=== PATIENT | female | born 1960 | race Caucasian/White ===

== ENCOUNTER → 2016-10-16 | Outpatient (CLI) | payer OTHER | END | disposition home or self-care (01) | LOC: LABWHC1 14:00 | PROVIDERS: ATTEND Internal Medicine | DX: E28.39 Other primary ovarian failure (principal); E34.9 Endocrine disorder, unspecified; N95.8 Other specified menopausal and perimenopausal disorders | CPT/HCPCS: 36415; 82670; 83001; 84402; 84403 ==

== ENCOUNTER 2017-02-27 12:36 | Day surgery (SDC) | payer OTHER ==
[2017-02-21 10:37] VITALS: BMI 22.1
--- NOTE | 2017-02-27 11:59 | P.GSHP ---
History of Present Illness H&P Date: 02/27/17 56 yrs old female presents with rectal fullness, discomfort and bright red bleeding. last colonoscopy on 2013 -single tubular adenoma. Recommend colonoscopy in 5 yrs. No weight loss. No change in bowel habits. No family history of colon cancer. Worsening pain and discomfort with intermittent rectal bleeding ROS Additionally reports: Constitutional: No fever, chills or rigors. No weight loss or loss of appetite. HEENT: No difficulty with hearing, vision and swallowing. Lymphatic: No axillary, inguinal and cervical swellings. Endocrine: No thyroid disorders. Denies history of diabetes. Respiratory: No chest pain, shortness of breath, and cough. No hemoptysis. Cardiovascular: No palpitations, irregular HR Gastrointestinal: Denies heartburn. No change in bowel habits. No nausea or vomiting. Genitourinary: No increase in urinary frequency or urgency. No hematuria. Musculoskeletal: No back pain, joint stiffness or pain. Neurologic: No history of seizure disorder and headaches. Psychiatric: Denies depression or anxiety . No suicidal ideation. Hematologic: Denies any abnormal mucosal bleeding or easy bruising. Physical Exam Patient is a 56-year-old female. General: The patient is alert and oriented to time, place and person. The patient is cooperative with the exam. The patient is not in any distress. HEENT: No icterus. No pallor. No thyroid enlargement. Chest: Bilateral breath sounds present. CVS: S1 and S2 heard and no murmurs. Abdomen: Soft, nontender. Nondistended. No peritoneal signs. No evidence of hernias. Musculoskeletal: Strength of upper and lower extremities 5/5. Neurological: Cranial nerves 2-12 intact. No focal neurological deficits. Integumentary: No skin rash or ulcers. Assessment / Plan 1. Colonoscopy in OR and open hemorrhoidectomy with exparel 2. Informed consent obtained from the patient after explaining the risks, benefits and potential complications of colonoscopy including bleeding and perforation and hemorrhoidectomy 3. Patient demonstrated understanding of the procedure and agreed to undergo colonoscopy with possible biopsy/polypectomy and open hemorrhoidectomy 4. Script for bowel prep 5. Preop Abx - Ancef 2gm IVPB and Flagyl 500 mg IVPB 1. Painless rectal bleeding K62.5: Hemorrhage of anus and rectum 2. Rectal prolapse K62.3: Rectal prolapse 3. Bleeding internal hemorrhoids K64.8: Other hemorrhoids Past Medical History Past Medical History: No Reported History History of Any Multi-Drug Resistant Organisms: None Reported Past Surgical History: Hysterectomy, Tubal Ligation Past Anesthesia/Blood Transfusion Reactions: No Reported Reaction Smoking Status: Current every day smoker - Past Family History Mother Family Medical History: No Reported History Medications and Allergies Home Medications Medication Instructions Recorded Confirmed Type Calcium Carbonate [Calcium] 1,200 mg PO DAILY 02/21/17 02/21/17 History Multivit with Calcium,Iron,Min 1 each PO DAILY 02/21/17 02/21/17 History [Women's Multivitamin] Neola-3 Fatty Acids [[place]ola-3] 2,000 mg PO DAILY 02/21/17 02/21/17 History Saw [place] 10,000 mg PO DAILY 02/21/17 02/21/17 History Allergies Allergy/AdvReac Type Severity Reaction Status Date / Time No Known Allergies Allergy Verified 02/21/17 10:26
[~2017-02-27 12:36] MED LIST: DEXAMETHASONE SOD PHOSPHATE 10 MG/ML 1 ML VIAL IV ONE; HEPARIN SODIUM,PORCINE 5,000 UNIT/ML 1 ML VIAL SQ ONE; HYDROmorphone 1 MG/ML 1 ML SYRINGE IVP PRN; LACTATED RINGERS 1,000 ML IV SCH; LIDOCAINE 1% 20 ML VIAL (10MG/ML) FOR IV START INTRADERMA PRN; Pre Op ABX Message 1 EACH MISC MISCELLANE ONE
[2017-02-27] MEDS ORDERED: LIDOCAINE 1% 20 ML VIAL (10MG/ML) FOR IV START INTRADERMA ONE (13:01)
[2017-02-27] MEDS ORDERED: BUPIVACAINE LIPOSOME/PF 1.3% 20 ML, SODIUM CHLORIDE 0.9% 10 ML MISCELLANE STA ×2 (13:17)
[2017-02-27] MEDS ORDERED: PROPOFOL 10 MG/ML 20 ML VIAL IV ONE (13:31)
[2017-02-27] MEDS ORDERED: fentaNYL (PF) 50 MCG/ML 2 ML AMP ONE (13:31)
[2017-02-27] MEDS ORDERED: LIDOCAINE 1% INJ 10MG/ML (20 ML MDV) ONE (13:31)
[2017-02-27] MEDS ORDERED: SUCCINYLCHOLINE CHLORIDE 100 MG/5 ML SYR IV ONE (13:31)
[2017-02-27] MEDS ORDERED: MIDAZOLAM 2 MG/2 ML VIAL ONE (13:31)
[2017-02-27 14:19] VITALS: TEMP 97
[2017-02-27 14:38] VITALS: PULSE 71
[2017-02-27 14:51] VITALS: BP 117/69; RESP 16
--- NOTE | 2017-02-27 15:52 | P.OP ---
Date of Procedure: 02/27/17 Preoperative Diagnosis: Rectal bleeding, rectal prolapse Postoperative Diagnosis: Same Procedure(s) Performed: Colonoscopy Implants: NA Anesthesia: SALINA Surgeon: Angela Bonilla Pathology: none sent Condition: stable Disposition: PACU Indications for Procedure: 57 years old female presents with intermittent episodes of diarrhea, rectal bleeding. She had patulous anal opening with rectal mucosal prolapse. Bedside anoscopy exam was limited and hence she was brought to the OR for colonoscopy and complete endoscopic examination and possible hemorrhoidectomy Operative Findings: Rectal mucosal prolapse Small grade 1 internal hemorrhoids Description of Procedure: The patient was brought to the endoscopy suite and placed in lateral decubitus position. IV sedation was given as per anesthesia team. Patient was on continuous vitals and pulse oximetry monitoring throughout the procedure. A timeout was performed to verify correct patient and correct procedure. Perianal examination did not show any external hemorrhoids. Digital rectal examination was performed. No masses or gross blood. A well-lubricated Olympus colonoscope was passed per rectally and was gradually advanced beyond the sigmoid colon, splenic flexure, transverse colon, hepatic flexure and cecum. The ileocecal valve was visualized as well as the appendiceal orifice . The colonoscope was gradually withdrawn inspecting all the mucosal surfaces. Bowel prep was good. No polyps, masses, AV malformations noted. Sigmoid diverticulosis noted without any evidence of acute diverticulitis. The scope was gradually withdrawn and retroflexed in the rectum . Grade 1 internal hemorrhoids seen. Total withdrawal time was greater than 6 minutes . Patient tolerated the procedure well and was taken to post anesthesia care unit in stable condition. Recommend repeat colonoscopy in 10 years .
== END 2017-02-27 15:30 | disposition home or self-care (01) ==
LOC: OR 12:36
PROVIDERS: ATTEND Surgery
DX: K62.3 Rectal prolapse (principal); K64.0 First degree hemorrhoids; K57.30 Diverticulosis of large intestine without perforation or abscess without bleeding; F17.200 Nicotine dependence, unspecified, uncomplicated
CPT/HCPCS: 45378; J2250; J1644; J1100; J2001; J3010; J0330; J2704

== ENCOUNTER → 2017-03-01 | Outpatient (CLI) | payer OTHER ==
[2017-03-01 16:42] LABS: Follicle Stimulating Hormone 16.4 mIU/mL
== END | disposition home or self-care (01) ==
LOC: LABWHC1 15:28
PROVIDERS: ATTEND Internal Medicine
DX: E28.39 Other primary ovarian failure (principal); E34.9 Endocrine disorder, unspecified; N95.8 Other specified menopausal and perimenopausal disorders
CPT/HCPCS: 36415; 82670; 83001; 84402; 84403

== ENCOUNTER → 2017-08-01 | Outpatient (CLI) | payer BC ==
--- NOTE | 2017-08-06 07:00 | MM ---
Reason for exam: screening (asymptomatic). Last mammogram was performed 1 year and 1 month ago. History: Patient is postmenopausal. Taking estrogen for 4 years. Took unspecified hormones for 4 years. Physical Findings: A clinical breast exam by your physician is recommended on an annual basis and results should be correlated with mammographic findings. MG Screening Mammo w CAD Bilateral CC and MLO view(s) were taken. Prior study comparison: June 26, 2016, bilateral MG 3d screening mammo w/cad. June 07, 2015, left breast MG 3d work up w/cad LT. May 26, 2015, bilateral MG screening mammo w CAD. January 22, 2012, bilateral digital screening mammo w/CAD. The breast tissue is extremely dense which could obscure a lesion on mammography. No significant changes when compared with prior studies. ASSESSMENT: Benign, BI-RAD 2 RECOMMENDATION: Routine screening mammogram of both breasts in 1 year.
== END | disposition home or self-care (01) ==
LOC: RADMAMWWP 13:32
PROVIDERS: ATTEND Internal Medicine
DX: Z12.31 Encounter for screening mammogram for malignant neoplasm of breast (principal)

== ENCOUNTER → 2017-11-21 | Outpatient (CLI) | payer BC | END | disposition home or self-care (01) | LOC: LABWHC1 14:43 | PROVIDERS: ATTEND Internal Medicine | DX: E28.39 Other primary ovarian failure (principal); E34.9 Endocrine disorder, unspecified; N95.8 Other specified menopausal and perimenopausal disorders | CPT/HCPCS: 36415; 80327; 82670; 83001; 84402; 84403 ==

== ENCOUNTER → 2017-12-17 | Outpatient (CLI) | payer BC ==
--- NOTE | 2017-12-17 10:17 | US ---
EXAMINATION TYPE: US abdomen complete DATE OF EXAM: 12/17/2017 COMPARISON: NONE CLINICAL HISTORY: 57-year-old female R10.31 Right lower quadrant pain; patient stated has epigastric pain after meals radiating to chest and relieved with Prilosec; uterus removed TECHNIQUE: Multiple sonographic images of the abdomen are obtained. FINDINGS: EXAM MEASUREMENTS: Liver Length: 16.0 cm Gallbladder Wall: 0.2 cm CBD: 5.6 mm Spleen: 7.9 cm Right Kidney: 8.2 x 5.3 x 4.4 cm Left Kidney: 11.0 x 5.6 x 4.7 cm Pancreas: wnl Liver: wnl Gallbladder: wnl Evidence for sonographic Abdi's sign: no CBD: Upper limits of normal in size. Spleen: wnl Right Kidney: There is a lobulated and somewhat distorted appearance. A few echogenic foci are scatt ered in the upper pole. The renal sinus area and the normal architecture is not well characterized. Left Kidney: No hydronephrosis. Upper IVC: wnl Abd Aorta: wnl IMPRESSION: 1. Lobulated and distorted appearance to the right kidney. This may relate to congenital malrotation. Recommend CT without and with contrast to exclude any underlying renal masses and to better characte rize the collecting system. 2. Punctate nonobstructive calculi upper pole right kidney.
== END | disposition home or self-care (01) ==
LOC: RADUSWWP 07:36
PROVIDERS: ATTEND Internal Medicine
DX: N20.0 Calculus of kidney (principal); R93.421 Abnormal radiologic findings on diagnostic imaging of right kidney
CPT/HCPCS: 76700

== ENCOUNTER → 2017-12-31 | Outpatient (CLI) | payer BC ==
--- NOTE | 2017-12-31 09:15 | CT ---
EXAMINATION TYPE: CT abdomen pelvis wo/w con DATE OF EXAM: 12/31/2017 COMPARISON: Correlation ultrasound 12/17/2017 HISTORY: 57-year-old female abnormal renal ultrasound. TECHNIQUE: Contiguous axial scanning of the abdomen and pelvis before and after administration of 100 ml Isovue 300 IV contrast. Delayed images through the kidneys and coronal/sagittal reconstructions performed. CT DLP: 1551 mGycm Automated exposure control for dose reduction was used. FINDINGS: Heart is normal size without pericardial effusion. Tiny hiatal hernia. Lung bases clear without pleur al effusion. Liver upper limits of normal in size at 17.0 cm. No hepatic extremity ptosis by CT. A couple tiny sub centimeter hypodensities in the right hepatic dome are too small for accurate CT characterization but likely represent cysts. No biliary ductal dilatation. Portal venous system is patent. Gallbladder, adrenal glands, left kidney with extrarenal pelvis, and spleen are within normal limits. Pancreas shows some punctate calcifications posterior pancreatic head region that could represent seq uela of prior pancreatitis. Imaging confirms a congenital malrotation of the right kidney accounting for the abnormal appearance on ultrasound. Kidney is rotated by nearly 180 degrees counterclockwise. No nephrolithiasis or hydron ephrosis. There is symmetric uptake and excretion of contrast from the kidneys. No suspicious renal m ass. No dilated small bowel, free fluid, or free air. Normal appendix. No mesenteric or retroperitoneal lymphadenopathy. [id number] stool without pericolonic inflammatory change. Bladder is urine distended. Uterus surgically absent. Both ovaries are visualized. No abnormal fluid collection in the pelvis or pelvic lymphadenopathy. Bones: No osseous destructive process. Mild degenerative disc disease L5-S1 with small left paracent ral disc herniation. 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 No hydronephrosis, nephrolithiasis, or suspicious renal mass.
== END | disposition home or self-care (01) ==
LOC: RADCTMAIN 06:57
PROVIDERS: ATTEND Internal Medicine
DX: Q63.2 Ectopic kidney (principal)
CPT/HCPCS: 74178; Q9967

== ENCOUNTER → 2018-04-08 | Outpatient (CLI) | payer BC | END | disposition home or self-care (01) | LOC: LABWHC1 14:45 | PROVIDERS: ATTEND Internal Medicine | DX: E28.39 Other primary ovarian failure (principal); E34.9 Endocrine disorder, unspecified; N95.8 Other specified menopausal and perimenopausal disorders | CPT/HCPCS: 36415; 80327; 82670; 83001; 84402; 84403 ==

== ENCOUNTER → 2018-09-02 | Outpatient (CLI) | payer BC ==
[2018-09-02 17:44] LABS: LDL Cholesterol,Calculated 91.8 mg/dL (0.0-131.0); Sex Horm Bind Glob 69.5 nmol/L (23.15-159.07); VLDL Calculation 36.2 mg/dL (5.00-40.00)
== END ==
LOC: LABWHC1 10:40
PROVIDERS: ATTEND Internal Medicine
DX: E28.39 Other primary ovarian failure (principal); N95.8 Other specified menopausal and perimenopausal disorders; E34.9 Endocrine disorder, unspecified
CPT/HCPCS: 36415; 80061; 80327; 82670; 83001; 84270; 84402; 84403

== ENCOUNTER → 2018-09-02 | Outpatient (CLI) | payer BC ==
--- NOTE | 2018-09-08 14:39 | MM ---
Reason for exam: screening (asymptomatic). Last mammogram was performed 1 year and 1 month ago. History: Patient is postmenopausal. Taking estrogen for 5 years 1 month. Took unspecified hormones for 5 years 1 month. Physical Findings: A clinical breast exam by your physician is recommended on an annual basis and results should be correlated with mammographic findings. MG 3D Screening Mammo W/Cad Bilateral CC and MLO view(s) were taken. Prior study comparison: August 01, 2017, bilateral MG screening mammo w CAD. June 26, 2016, bilateral MG 3d screening mammo w/cad. The breast tissue is heterogeneously dense. This may lower the sensitivity of mammography. No significant changes when compared with prior studies. ASSESSMENT: Negative, BI-RAD 1 RECOMMENDATION: Routine screening mammogram of both breasts in 1 year.
== END | disposition home or self-care (01) ==
LOC: RADMAMWWP 10:14
PROVIDERS: ATTEND Internal Medicine
DX: Z12.31 Encounter for screening mammogram for malignant neoplasm of breast (principal)
CPT/HCPCS: 77063; 77067

== ENCOUNTER → 2019-07-07 | Outpatient (CLI) | payer BC ==
[2019-07-08 00:34] LABS: Estradiol 98.1 pg/mL; Follicle Stimulating Hormone 19.2 mIU/mL
== END | disposition home or self-care (01) ==
LOC: LABWHC1 15:48
PROVIDERS: ATTEND Internal Medicine
DX: E28.39 Other primary ovarian failure (principal); N95.8 Other specified menopausal and perimenopausal disorders; E34.9 Endocrine disorder, unspecified
CPT/HCPCS: 36415; 82670; 83001; 84403

== ENCOUNTER → 2019-09-15 | Outpatient (CLI) | payer BC ==
--- NOTE | 2019-09-16 11:20 | MM ---
Reason for exam: screening (asymptomatic). Last mammogram was performed 1 year ago. History: Patient is postmenopausal. Taking estrogen for 5 years 1 month. Took unspecified hormones for 5 years 1 month. Physical Findings: A clinical breast exam by your physician is recommended on an annual basis and results should be correlated with mammographic findings. MG 3D Screening Mammo W/Cad Bilateral CC and MLO view(s) were taken. XCCL view(s) were taken of the left breast. Prior study comparison: September 02, 2018, bilateral MG 3d screening mammo w/cad. August 01, 2017, bilateral MG screening mammo w CAD. The breast tissue is heterogeneously dense. This may lower the sensitivity of mammography. Stable benign calcifications. There is no discrete abnormality. No significant changes when compared with prior studies. ASSESSMENT: Benign, BI-RAD 2 RECOMMENDATION: Routine screening mammogram of both breasts in 1 year.
== END | disposition home or self-care (01) ==
LOC: RADMAMWWP 13:09
PROVIDERS: ATTEND Internal Medicine
DX: Z12.31 Encounter for screening mammogram for malignant neoplasm of breast (principal)
CPT/HCPCS: 77063; 77067

== ENCOUNTER → 2020-12-27 | Outpatient (CLI) | payer BC ==
--- NOTE | 2020-12-29 14:26 | MM ---
Reason for exam: screening (asymptomatic). Last mammogram was performed 1 year and 3 months ago. History: Patient is postmenopausal. Took estrogen for 5 years 1 month. Took unspecified hormones for 5 years 1 month. Physical Findings: A clinical breast exam by your physician is recommended on an annual basis and results should be correlated with mammographic findings. MG 3D Screening Mammo W/Cad Bilateral CC and MLO view(s) were taken. Prior study comparison: September 15, 2019, bilateral MG 3d screening mammo w/cad. September 02, 2018, bilateral MG 3d screening mammo w/cad. The breast tissue is heterogeneously dense. This may lower the sensitivity of mammography. Focal asymmetry upper outer left breast. This finding is changed when compared with previous exams. ASSESSMENT: Incomplete: need additional imaging evaluation, BI-RAD 0 RECOMMENDATION: Special view mammogram of the left breast. If lesion persists on supplemental views, image directed ultrasound is recommended. [facility] will attempt to contact patient to return for supplemental views and ultrasound if indicated.
== END | disposition home or self-care (01) ==
LOC: RADMAMWWP 12:32
PROVIDERS: ATTEND Internal Medicine
DX: Z12.31 Encounter for screening mammogram for malignant neoplasm of breast (principal); Z78.0 Asymptomatic menopausal state
CPT/HCPCS: 77063; 77067

== ENCOUNTER → 2021-01-05 | Outpatient (CLI) | payer BC ==
--- NOTE | 2021-01-05 11:48 | MM ---
Reason for exam: additional evaluation requested from abnormal screening. Last mammogram was performed less than 1 month ago. History: Patient is postmenopausal. Took estrogen for 10 years 1 month. Took unspecified hormones for 10 years 1 month. Physical Findings: Nurse did not find any significant physical abnormalities on exam. MG 3D Work Up W/Cad LT Spot compression CC, spot compression MLO, and LM view(s) were taken of the left breast. Prior study comparison: December 27, 2020, bilateral MG 3d screening mammo w/cad. September 15, 2019, bilateral MG 3d screening mammo w/cad. The breast tissue is extremely dense which could obscure a lesion on mammography. Left focal asymmetry upper outer quadrant posterior depth is benign asymmetry/overlap tissue. These results were verbally communicated with the patient and result sheet given to the patient on 01/05/21. ASSESSMENT: Benign, BI-RAD 2 RECOMMENDATION: Return to routine screening mammogram schedule for both breasts.
== END | disposition home or self-care (01) ==
LOC: RADMAMWWP 10:23
PROVIDERS: ATTEND Internal Medicine
DX: N64.89 Other specified disorders of breast (principal); Z78.0 Asymptomatic menopausal state
CPT/HCPCS: 77061; 77065

== ENCOUNTER → 2022-01-16 | Outpatient (CLI) | payer BC ==
--- NOTE | 2022-01-18 17:35 | MM ---
Reason for Exam: Screening (asymptomatic). Last mammogram was performed 1 year(s) and 1 month(s) ago. Patient History: Menarche at age 12. First Full-Term at age 31. Hysterectomy at age 48. Postmenopausal. Estrogen for 10 years, 1 month. Unspecified Hormone for 10 years, 1 month. Mother had breast cancer, right, age 78. Risk Values: Shea 5 year model risk: 3.0%. NCI Lifetime model risk: 15.5%. Prior Study Comparison: 09/15/2019 Bilateral Screening Mammogram, [facility]. 12/27/2020 Bilateral Screening Mammogram, [facility]. 01/05/2021 Left Diagnostic Mammogram, [facility]. Tissue Density: The breast tissue is extremely dense which could obscure a lesion on mammography. Findings: Analyzed By CAD. Benign spherical calcifications are present. There is a coarse calcification in the right breast. No suspicious groups of microcalcifications, spiculated or lobular masses, Architectural distortion or other secondary signs of malignancy are mammographically apparent. Overall Assessment: Benign, BI-RAD 2 Management: Screening Mammogram of both breasts in 1 year. A negative mammogram report should not preclude additional follow up of suspicious palpable abnormalities. Patient should continue monthly self breast exam. A clinical breast exam by your physician is recommended on an annual basis and results should be correlated with mammographic findings. Electronically signed and approved by: Jesse Caballero D.O. Radiologis
== END | disposition home or self-care (01) ==
LOC: RADMAMWWP 11:49
PROVIDERS: ATTEND Internal Medicine
DX: Z12.31 Encounter for screening mammogram for malignant neoplasm of breast (principal); Z80.3 Family history of malignant neoplasm of breast; Z78.0 Asymptomatic menopausal state
CPT/HCPCS: 77063; 77067

== ENCOUNTER → 2022-02-02 | Day surgery (SDC) | payer BC ==
[2022-01-31 15:42] VITALS: BMI 23.2
[~2022-02-02] MED LIST changes: -DEXAMETHASONE SOD PHOSPHATE 10 MG/ML 1 ML VIAL IV ONE; -HEPARIN SODIUM,PORCINE 5,000 UNIT/ML 1 ML VIAL SQ ONE; -HYDROmorphone 1 MG/ML 1 ML SYRINGE IVP PRN; +LIDOCAINE 1% (10MG/ML) FOR IV START INTRADERMA ONE; -LIDOCAINE 1% 20 ML VIAL (10MG/ML) FOR IV START INTRADERMA PRN; +LIDOCAINE 2% INJ 20 MG/ML (2 ML VIAL) ONE; +PROPOFOL 10 MG/ML 20 ML VIAL IV ONE; -Pre Op ABX Message 1 EACH MISC MISCELLANE ONE
[2022-02-02 08:05] VITALS: TEMP 97.5
--- NOTE | 2022-02-02 09:15 | P.PCN ---
Date of Procedure: 02/02/22 Procedure(s) Performed: BRIEF HISTORY: Patient is a 61-year-old pleasant white female scheduled for an elective colonoscopy as a part of screening for colon rectal neoplasia. PROCEDURE PERFORMED: Colonoscopy. PREOPERATIVE DIAGNOSIS: Screening for colon cancer. IV sedation per Anesthesia. PROCEDURE: After informed consent was obtained, the patient, was brought into the endoscopy unit. IV sedation was administered by Anesthesia under continuous monitoring. Digital rectal examination was normal. Initially the Olympus CF-160 flexible video colonoscope was then inserted in the rectum, gradually advanced into the cecum without any difficulty. Careful examination was performed as the scope was gradually being withdrawn. Ileocecal valve and the appendiceal orifice were visualized and appeared normal. Prep was excellent. Mucosa of the cecum, ascending colon, transverse colon, descending colon, sigmoid colon, and rectum appeared normal. Retroflexion was performed in the rectum and small internal hemorrhoids were seen. The patient tolerated the procedure well. IMPRESSION: Normal-appearing colon from rectum to cecum with no evidence of colorectal neoplasia . Small internal hemorrhoids RECOMMENDATIONS: Findings of this examination were discussed with the patient as well as a family. She was advised to have a repeat screening colonoscopy in 10 years..
[2022-02-02 09:22] VITALS: RESP 18
[2022-02-02 09:57] VITALS: BP 112/72; PULSE 71
== END ==
LOC: ORWHC2ENDO 07:34
PROVIDERS: ATTEND Internal Medicine Gastroenterology
DX: Z12.11 Encounter for screening for malignant neoplasm of colon (principal); K64.8 Other hemorrhoids; Z72.0 Tobacco use
CPT/HCPCS: J2704; J2001; G0121

== ENCOUNTER → 2022-06-19 | Outpatient (CLI) | payer BC ==
--- NOTE | 2022-06-19 13:23 | CTL ---
EXAMINATION TYPE: CT Low Dose Lung DATE OF EXAM: 06/19/2022 12:30 PM CLINICAL INDICATION:Female, 62 years old with history of Z87.891; Nicotine dependant , history of tob acco use. COMPARISON: None TECHNIQUE: Multiple axial non-contrast scans were obtained from approximately the lung apices through the upper abdomen. Coronal and sagittal reformatted images were obtained. Low dose technique was uti lized. CT DLP: 61 mGycm, Automated exposure control for dose reduction was used. CT Contrast: Contrast used: None Oral contrast used: None FINDINGS: ======== Lack of intravenous contrast and low dose technique limits the evaluation of the vascular and soft ti ssue structures. LUNGS: Mild centrilobular emphysema changes noted Nodules: RUL: None. RML: None. RLL: None. HAYLEE: None. LLL: None. AIRWAYS: Unremarkable. LOWER NECK: Grossly unremarkable. LYMPH NODES: No grossly enlarged lymph nodes in the thorax. MEDIASTINUM?AND NINA: Grossly unremarkable. HEART AND VASCULAR STRUCTURES: Grossly unremarkable. PLEURA & PERICARDIUM: Grossly unremarkable. CHEST WALL: Grossly unremarkable. UPPER ABDOMEN: Hepatic cyst. BONES: Total mild multilevel disc degeneration changes throughout the spine.7 IMPRESSION: 1. No clinically significant pulmonary nodules. 2. Mild emphysema. CT LUNG RAD AND CT CHEST RECOMMENDATION: Lung-Rad 1 Negative: Continue annual screening with LDCT in 12 months. S Modifier (other clinically significant findings): None Recommendation: Continue annual low dose lung cancer screening in 12 months. Lung-RADS Category: 2 Recommend smoking cessation (if current smoker), or continuation of smoking cessation (if prior smoke r). Annual screening for lung cancer with low-dose computed tomography is recommended in adults ages 55 to 77 years who have a 30 pack-year smoking history and currently smoke or have quit within the pa st 15 years. Screening should be discontinued once a person has not smoked for 15 years or develops a health problem that substantially limits life expectancy or the ability or willingness to have curat wyatt lung surgery.
== END | disposition home or self-care (01) ==
LOC: RADCTMAIN 12:07
PROVIDERS: ATTEND Internal Medicine
DX: Z12.2 Encounter for screening for malignant neoplasm of respiratory organs (principal); J43.9 Emphysema, unspecified; Z87.891 Personal history of nicotine dependence
CPT/HCPCS: 71271

== ENCOUNTER → 2022-09-13 | Outpatient (CLI) | payer BC ==
[2022-09-13 23:35] LABS: Estradiol 18.8 pg/mL; Follicle Stimulating Hormone 59.1 mIU/mL; Testosterone 17.4 ng/mL (7.00-45.62)
== END | disposition home or self-care (01) ==
LOC: LABWHC1 14:00
PROVIDERS: ATTEND Internal Medicine
DX: E28.39 Other primary ovarian failure (principal); E34.9 Endocrine disorder, unspecified; F52.0 Hypoactive sexual desire disorder; N95.1 Menopausal and female climacteric states
CPT/HCPCS: 36415; 82670; 83001; 84402; 84403

== ENCOUNTER → 2022-11-20 | Outpatient (CLI) | payer BC ==
[2022-11-20 20:11] LABS: Estradiol 62.3 pg/mL; Follicle Stimulating Hormone 36.8 mIU/mL
== END | disposition home or self-care (01) ==
LOC: LABWHC1 14:17
PROVIDERS: ATTEND Internal Medicine
DX: E28.39 Other primary ovarian failure (principal); E34.9 Endocrine disorder, unspecified; F52.0 Hypoactive sexual desire disorder; N95.8 Other specified menopausal and perimenopausal disorders
CPT/HCPCS: 36415; 82670; 83001; 84402; 84403

== ENCOUNTER → 2023-01-22 | Outpatient (CLI) | payer BC ==
--- NOTE | 2023-01-23 09:07 | MM ---
Reason for Exam: Screening (asymptomatic). Last screening mammogram was performed 12 month(s) ago. Patient History: Menarche at age 12. First Full-Term at age 31. Hysterectomy at age 48. Postmenopausal. Estrogen for 10 years, 1 month. Unspecified Hormone for 10 years, 1 month. Mother had breast cancer, right, age 78. Risk Values: Shae 5 year model risk: 3.1%. NCI Lifetime model risk: 15.2%. Prior Study Comparison: 12/27/2020 Bilateral Screening Mammogram, [facility]. 01/05/2021 Left Diagnostic Mammogram, [facility]. 01/16/2022 Bilateral MG 3D screening mammo w/cad, [facility]. Tissue Density: The breast tissue is heterogeneously dense. This may lower the sensitivity of mammography. Findings: Analyzed By CAD. There is no suspicious group of microcalcifications or new suspicious mass in either breast. Overall Assessment: Negative, BI-RAD 1 Management: Screening Mammogram of both breasts in 1 year. . Patient should continue monthly self-breast exams. A clinical breast exam by your physician is recommended on an annual basis. This exam should not preclude additional follow-up of suspicious palpable abnormalities. Note on Shae scores and lifetime risk: 1. A Shae score greater than 3% is considered moderate risk. If this is the case, consider specialist referral to assess eligibility for a risk reducing agent. 2. If overall lifetime risk for the development of breast cancer is 20% or higher, the patient may qualify for future screening with alternating mammogram and breast MRI. Electronically signed and approved by: Claude Preciado M.D. Radiologis
== END | disposition home or self-care (01) ==
LOC: RADMAMWWP 13:06
PROVIDERS: ATTEND Internal Medicine
DX: Z12.31 Encounter for screening mammogram for malignant neoplasm of breast (principal); Z78.0 Asymptomatic menopausal state; Z80.3 Family history of malignant neoplasm of breast
CPT/HCPCS: 77063; 77067

== ENCOUNTER → 2023-02-28 | Outpatient (CLI) | payer BC ==
[2023-02-28 16:24] LABS: Estradiol 42.2 pg/mL; Testosterone 69.5 ng/dL (7.00-45.62)
== END | disposition home or self-care (01) ==
LOC: LABWHC1 12:06
PROVIDERS: ATTEND Internal Medicine
DX: E28.39 Other primary ovarian failure (principal); E34.9 Endocrine disorder, unspecified; F52.0 Hypoactive sexual desire disorder; N95.8 Other specified menopausal and perimenopausal disorders
CPT/HCPCS: 36415; 82670; 83001; 84402; 84403

== ENCOUNTER → 2023-07-18 | Outpatient (CLI) | payer BC ==
[2023-07-19 02:14] LABS: Estradiol 47.6 pg/mL; Testosterone 87.8 ng/dL (7.00-45.62)
[2023-07-19 02:24] LABS: Follicle Stimulating Hormone 51.6 mIU/mL
== END | disposition home or self-care (01) ==
LOC: LABWHC1 12:14
PROVIDERS: ATTEND Internal Medicine
DX: E28.39 Other primary ovarian failure (principal); E34.9 Endocrine disorder, unspecified; F52.0 Hypoactive sexual desire disorder; N95.8 Other specified menopausal and perimenopausal disorders
CPT/HCPCS: 36415; 82670; 83001; 84402; 84403

== ENCOUNTER → 2024-01-02 | Outpatient (CLI) | payer BC ==
[2024-01-02 18:52] LABS: Estradiol 66.2 pg/mL; Testosterone 67.2 ng/dL (7.00-45.62)
[2024-01-02 19:17] LABS: Follicle Stimulating Hormone 49.4 mIU/mL
--- NOTE | 2024-01-06 13:29 | MM ---
Reason for Exam: Screening (asymptomatic). Last screening mammogram was performed 11 month(s) ago. Patient History: Menarche at age 12. First Full-Term at age 31. Hysterectomy at age 48. Postmenopausal. Estrogen for 10 years, 1 month. Unspecified Hormone for 10 years, 1 month. Mother had breast cancer, right, age 78. Risk Values: Shae 5 year model risk: 3.2%. NCI Lifetime model risk: 14.8%. Prior Study Comparison: 01/05/2021 Left Diagnostic Mammogram, [facility]. 01/16/2022 Bilateral MG 3D screening mammo w/cad, [facility]. 01/22/2023 Bilateral MG 3D screening mammo w/cad, [facility]. Tissue Density: The breasts are extremely dense, which lowers the sensitivity of mammography. Findings: Analyzed By CAD. The pattern is symmetrical. Pattern is symmetrical. Benign spherical calcifications are present bilaterally. No suspicious groups of microcalcifications, spiculated or lobular masses, architectural distortion or other secondary signs of malignancy are mammographically apparent. Overall Assessment: Benign, BI-RAD 2 Management: Screening Mammogram of both breasts in 1 year. A negative mammogram report should not preclude additional follow up of suspicious palpable abnormalities. Patient should continue monthly self breast exam. A clinical breast exam by your physician is recommended on an annual basis and results should be correlated with mammographic findings. Note on Shae scores and lifetime risk: 1. A Shae score greater than 3% is considered moderate risk. If this is the case, consider specialist referral to assess eligibility for a risk reducing agent. 2. If overall lifetime risk for the development of breast cancer is 20% or higher, the patient may qualify for future screening with alternating mammogram and breast MRI. Electronically signed and approved by: Jesse Caballero D.O. Radiologis
== END | disposition home or self-care (01) ==
LOC: RADMAMWWP 11:57
PROVIDERS: ATTEND Internal Medicine
DX: Z12.31 Encounter for screening mammogram for malignant neoplasm of breast (principal); E34.9 Endocrine disorder, unspecified; F52.0 Hypoactive sexual desire disorder; N95.8 Other specified menopausal and perimenopausal disorders; Z78.0 Asymptomatic menopausal state; Z80.3 Family history of malignant neoplasm of breast
CPT/HCPCS: 77063; 77067; 82670; 83001; 84402; 84403

== ENCOUNTER → 2024-09-01 | Outpatient (CLI) | payer BC ==
[2024-09-01 19:19] LABS: Chol/HDL Ratio 2.61 Ratio; LDL Cholesterol,Calculated 82.2 mg/dL (0.0-131.0)
[2024-09-01 19:32] LABS: Follicle Stimulating Hormone 20.3 mIU/mL
== END | disposition home or self-care (01) ==
LOC: LABWHC1 14:42
PROVIDERS: ATTEND Internal Medicine
DX: Z13.220 Encounter for screening for lipoid disorders (principal); E28.39 Other primary ovarian failure; E34.9 Endocrine disorder, unspecified; F52.0 Hypoactive sexual desire disorder; N95.8 Other specified menopausal and perimenopausal disorders
CPT/HCPCS: 36415; 80061; 82670; 83001; 84402; 84403

== ENCOUNTER → 2024-12-15 | Outpatient (CLI) | payer BC ==
[2024-12-15 19:49] LABS: Testosterone 66.5 ng/dL (7.00-45.62)
[2024-12-15 19:55] LABS: Follicle Stimulating Hormone 15.2 mIU/mL
== END | disposition home or self-care (01) ==
LOC: LABWHC1 15:24
PROVIDERS: ATTEND Internal Medicine
DX: N95.8 Other specified menopausal and perimenopausal disorders (principal); F52.0 Hypoactive sexual desire disorder; E34.9 Endocrine disorder, unspecified; E28.39 Other primary ovarian failure
CPT/HCPCS: 36415; 82670; 83001; 84402; 84403

== ENCOUNTER → 2025-01-21 | Outpatient (CLI) | payer BC ==
--- NOTE | 2025-01-21 12:59 | MM ---
Reason for Exam: Screening (asymptomatic). Last mammogram was performed 1 year(s) and 1 month(s) ago. Patient History: Menarche at age 12. First Full-Term at age 31. Hysterectomy at age 48. Postmenopausal. Estrogen for 10 years, 1 month. Unspecified Hormone for 10 years, 1 month. Mother had breast cancer, right, age 78. Risk Values: Shae 5 year model risk: 3.3%. Shae 5 year model risk: 3.3%. NCI Lifetime model risk: 14.3%. NCI Lifetime model risk: 14.3%. Prior Study Comparison: 01/16/2022 Bilateral MG 3D screening mammo w/cad, [facility]. 01/22/2023 Bilateral MG 3D screening mammo w/cad, [facility]. 01/02/2024 Bilateral MG 3D screening mammo w/cad, [facility]. Tissue Density: The breasts are extremely dense, which lowers the sensitivity of mammography. Findings: Analyzed By CAD. A marker is placed over area of palpable abnormality. No definite mass. Benign calcifications. Nodular density along the outer margin of the right breast. Not seen on prior exam. Recommend ultrasound of the palpable abnormality and the lateral margin of the right breast. Overall Assessment: Incomplete: need additional imaging evaluation, BI-RAD 0 Management: Diagnostic Breast Ultrasound of the right breast. . Patient should continue monthly self-breast exams. A clinical breast exam by your physician is recommended on an annual basis. This exam should not preclude additional follow-up of suspicious palpable abnormalities. Note on Shae scores and lifetime risk: 1. A Shae score greater than 3% is considered moderate risk. If this is the case, consider specialist referral to assess eligibility for a risk reducing agent. 2. If overall lifetime risk for the development of breast cancer is 20% or higher, the patient may qualify for future screening with alternating mammogram and breast MRI. [facility], , 01/21/2025 12:55 PM. Electronically signed and approved by: Yair Muñoz M.D. Radiologis
== END | disposition home or self-care (01) ==
LOC: RADMAMWWP 12:37
PROVIDERS: ATTEND Internal Medicine
DX: Z12.31 Encounter for screening mammogram for malignant neoplasm of breast (principal); R92.343 Mammographic extreme density, bilateral breasts; Z78.0 Asymptomatic menopausal state; Z80.3 Family history of malignant neoplasm of breast
CPT/HCPCS: 77063; 77067

== ENCOUNTER → 2025-02-03 | Outpatient (CLI) | payer BC ==
--- NOTE | 2025-02-03 15:49 | USB ---
Reason for Exam: Additional evaluation requested from abnormal screening. Patient History: Menarche at age 12. First Full-Term at age 31. Hysterectomy at age 48. Postmenopausal. Estrogen for 10 years, 1 month. Unspecified Hormone for 10 years, 1 month. Mother had breast cancer, right, age 78. Risk Values: Shae 5 year model risk: 3.3%. NCI Lifetime model risk: 14.3%. Technique: Method: Targeted. Prior Study Comparison: 01/22/2023 Bilateral MG 3D screening mammo w/cad, [facility]. 01/02/2024 Bilateral MG 3D screening mammo w/cad, [facility]. 01/21/2025 Bilateral MG 3D screening mammo w/cad, [facility]. Findings: The upper outer quadrant of the right breast, the axilla of the right breast and the retroareolar of the right breast were scanned. Technique utilized:US breast workup limited RT Image; Ultrasound imaging of: Area of concern, retroareolar region and axilla. No evidence for solid mass. Anechoic cysts at: 10:00 4 cm from the nipple measuring 0.8 x 0.4 x 0.8 cm. 12:00 2 cm from the measuring 1.3 x 0.6 x 0.8 cm. Given some mild complexity/septations are within short-term follow-up in 6 months recommended. Negative right axilla. Overall Assessment: Probably benign, BI-RAD 3 Management: Diagnostic Breast Ultrasound of the right breast in 6 months. A clinical breast exam by your physician is recommended on an annual basis and results should be correlated with mammographic findings. This exam should not preclude additional follow-up of suspicious palpable abnormalities. Results were given to the patient verbally at the time of exam. [facility], , 02/03/2025 3:44 PM. Electronically signed and approved by: Yassine Ramos DO
== END | disposition home or self-care (01) ==
LOC: RADUSWWP 14:47
PROVIDERS: ATTEND Internal Medicine
DX: R92.8 Other abnormal and inconclusive findings on diagnostic imaging of breast (principal); Z78.0 Asymptomatic menopausal state; Z80.3 Family history of malignant neoplasm of breast